=== PATIENT | male | born 1955 | race African-American/Black ===

== ENCOUNTER → 2018-12-24 | Outpatient (CLI) | payer MEDICARE ==
--- NOTE | 2018-12-24 18:19 | PCVCIMAG ---
EXAM: BILATERAL LOWER EXTREMITY ARTERIAL DUPLEX INDICATION: Peripheral Arterial Disease. Leg pain. History right toe gangrene. Right toe osteomyelitis and nonhealing ulcer. FINDINGS: Right Leg: Common femoral and profunda femoral arteries are patent. Occlusion of the [place] popliteal artery. Occlusion of the tibioperoneal trunk. Occlusion throughout the anterior tibial artery. The peroneal artery and posterior tibial artery appear patent. Left Leg: Common femoral and [place] femoral arteries are patent. Mild stenosis [place] superficial femoral artery. Popliteal artery is patent. Occlusion throughout the anterior tibial artery. The peroneal and posterior tibial arteries are patent. IMPRESSION: Occlusion [place] right popliteal artery. Occlusion right tibioperoneal trunk. Occlusion right anterior tibial artery. Mild stenosis [place] left superficial femoral artery not felt be flow-limiting. Occlusion throughout the left anterior tibial artery. LOC:[place] [id number]
== END | disposition home or self-care (01) ==
LOC: PCVCIMAG 13:24
PROVIDERS: ATTEND Nuclear Medicine Nuclear Cardiology
DX: I73.9 Peripheral vascular disease, unspecified (principal); S81.809A Unspecified open wound, unspecified lower leg, initial encounter; I77.1 Stricture of artery; X58.XXXA Exposure to other specified factors, initial encounter; Y93.89 Activity, other specified; Y92.89 Other specified places as the place of occurrence of the external cause; Y99.8 Other external cause status
CPT/HCPCS: 93925